=== PATIENT | female | born 1945 | race Caucasian/White ===

== ENCOUNTER 2019-11-01 10:49 | Emergency (ER) | payer MEDICARE, OTHER, SELFPAY ==
[2019-11-01] MEDS: vecuronium 10 mg SDV IVP (10:57)
[2019-11-01 11:00] VITALS: RESP 20
--- NOTE | 2019-11-01 11:02 | XRR_ITS ---
PROCEDURE INFORMATION: Exam: XR Chest, 1 View Exam date and time: 11/01/2019 11:27 AM Age: 73 years old Clinical indication: Device placement; Ett placement (vent status); Patient HX: Post code; Additional info: Covid, ett, og tube TECHNIQUE: Imaging protocol: XR of the chest Views: 1 view. COMPARISON: No relevant prior studies available. FINDINGS: The thorax is partially obscured by overlying EKG leads and patches. Tubes, catheters and devices: Endotracheal and feeding tubes. The endotracheal tube terminates 1.6 cm above the amy wall the feeding tube terminates at the gastroesophageal junction. Lungs: COPD, interstitial disease, and mild airspace disease. Pleural space: Asymmetric apical pleural thickening. Heart/Mediastinum: No cardiomegaly. Bones/joints: Osteopenia, degenerative change, and scoliosis. XR/XR chest 1V portable [id number] IMPRESSION: 1. Endotracheal and feeding tubes. The endotracheal tube terminates 1.6 cm above the amy wall the feeding tube terminates at the gastroesophageal junction. 2. COPD, interstitial disease, and mild airspace disease.
--- NOTE | 2019-11-01 11:03 | ECG_ITS ---
[facility] Test Date: 2019-11-01 Pat Name: Myrtle Molina Department: Room: Gender: Female Reproduction Artist: : [id number] Requested By: Deb Castellanos Order Number: [id number] Ashley MD: Crista Rosario M.D. Measurements Intervals Valentines Rate: 116 P: 68 SD: 192 QRS: 118 QRSD: 126 T: 71 QT: 349 QTc: 485 Interpretive Statements SINUS TACHYCARDIA WITH OCCASIONAL SUPRAVENTRICULAR PREMATURE COMPLEXES POSSIBLE LEFT ATRIAL ENLARGEMENT [-0.1mV P WAVE IN V1/V2] RIGHT BUNDLE BRANCH BLOCK [120+ ms QRS DURATION, UPRIGHT V1, 40+ ms S IN I/aVL/V4/V5/V6] LEFT POSTERIOR FASCICULAR BLOCK [QRS AXIS > 109, INFERIOR Q] No previous ECG available for comparison Electronically Signed On 11-01-2019 19:40:26 CDT by Crista Rosario M.D. [id number]
--- NOTE | 2019-11-01 11:07 | W.ED.GENADLT ---
HPI - General Adult General: Chief complaint: Cardiac Arrest/CPR Stated complaint: CODE BLUE Time Seen by Provider: 11/01/19 11:01 History of Present Illness: HPI narrative: This patient is a 73-year-old female who has been sick for about a week. Per her son she was seen at [place] in the ER on Tuesday for chest pain and shortness of breath and was diagnosed with COVID. She was told that her heart and lungs were good and her oxygen level was good and she was discharged home. Her son and his brother were unable to reach her by phone today and called for a well check. It is unclear from the report whether she was found down or whether she collapsed when someone had arrived to check on her but either way EMS reported that she was pulseless and apneic. She was intubated with an eye gel. She was found to be in V. fib and was defibrillated. She went into [facility] had another round of CPR and then had [facility]. On arrival to the ER she was making some respiratory effort and had a good pulse and blood pressure but minimally responsive. Review of Systems General: Reports: ROS unobtainable due to medical condition Physical Exam Narrative: EXAM NARRATIVE: Intubated with an I gel, some respiratory effort, initially no response to painful stimuli Const: NUTRITIONAL APPEARANCE: thin and underweight Neck/C-Spine: GENERAL: Yes anterior neck swelling (Appears to be related to the eye gel and resolves when it was removed) Chest: COMMONS NORMALS: normal inspection of the chest CHEST: Yes Symmetrical chest wall rise (With bagging) Resp: COMMON NORMALS: clear to auscultation bilaterally (With bagging) AUSCULTATION: clear to auscultation bilaterally (With bagging) Cardio: COMMON NORMALS: regular rhythm and No murmurs present (Cardio) RATE: tachycardic RHYTHM: regular rhythm GI: COMMON NORMALS: Soft to palpation, non-tender and no masses PALPATION: Yes Soft to palpation Extremity: COMMON NORMALS: normal to inspection (I/O in the left tibia) Neuro: VALERIA COMA SCALE: document GCS findings [place] coma scale eye opening: None [place] coma scale verbal response: None Valeria coma scale motor response: Abnormal flexion [place] coma scale total score: 5 Procedures Intubation Time out performed: Yes sedative: Etomidate paralytic: Vecuronium Laryngoscope: fiber optic video scope ET Tube Size: 8 ET Tube Uncuffed: No Tube Secured Depth (cm): 23 Tube Placement Confirmation: visualized tube passing through cords, equal breath sounds bilaterally, no breath sounds over epigastrium and confirmation by capnometry Patient Tolerated Procedure: well Intubation Complications: none Course ED course: I spoke with the patient's son by phone. He lives in [facility] and is on his way here. He requested her to be transferred to [place] if possible. I spoke with Dr. Mccarthy there who accepted the patient. Will be transferred shortly. Vital signs of been good here. She is ventilating well. ABG showed a pH of 7.0. BUN is 49. Glucose is 344. She was started on Decadron, Lovenox, remdesivir. Vital Signs: Vital signs: Vital Signs Temperature 93.6 F L 11/01/19 12:39 Pulse Rate 111 H 11/01/19 12:39 Respiratory Rate 20 H 11/01/19 12:39 Blood Pressure 110/74 11/01/19 12:39 Pulse Oximetry 95 11/01/19 12:39 [facility] - General Adult Lab Data: Labs: Lab Results 11/01/19 11/01/19 11/01/19 Range/Units 10:55 10:55 10:55 WBC 15.1 H (4.0-10.0) 10^3/ uL RBC 3.67 L (4.1-5.3) 10^6/u L Hgb 11.2 L (11.5-15.3) g/dL Hct 35.9 L (37.0-47.0) % MCV 97.8 (81-99) fL MCH 30.5 (28.0-34.0) pg MCHC 31.2 (30.0-36.0) g/dL RDW 13.3 (12.1-15.1) % Plt Count 344 (130-400) 10^3/c mm MPV 10.2 (7.4-10.4) fL Neut % (Auto) 89.0 % Lymph % (Auto) 5.8 % Armstrong % (Auto) 3.4 % Eos % (Auto) 0.0 % Baso % (Auto) 0.2 % Neut # (Auto) 13.42 H (1.8-7.7) 10^3/u L Lymph # (Auto) 0.9 (0.8-4.8) 10^3/u L Armstrong # (Auto) 0.5 (0.2-0.9) 10^3/u L Eos # (Auto) 0.0 (0.0-0.8) 10^3/u L Baso # (Auto) 0.0 (0.0-0.1) 10^3/u L Nucleated RBC % (a uto) 0.1 % Nucleated RBCs # 0.0 /100WBC PT 16.00 H (12.1-14.9) SECO NDS INR 1.24 H (0.8-1.2) D-Dimer 7.93 H (0-0.59) ug/mIFE U Specimen Type Arterial Sample Site Not Reportable ABG pH 7.09 L* (7.35-7.45) ABG pCO2 56.3 H (35-45) mmHg ABG pO2 102.0 H (80.0-100.0) mmH g ABG HCO3 17.2 L (22-26) mmol/L ABG Base Excess -12.5 L (-2.0-2.0) mmol/ L Arnaud Test N/a Hematocrit 35.1 L (37-47) % O2 Delivery Device Vent FiO2 100.0 % Tidal Volume 0.35 PEEP 6.0 cmH20 Cocoa Milling Machine Operator ID Gd Blood Gas Notified Time 1100 Sodium (136-145) mmol/L Potassium (3.5-5.1) mmol/L Chloride (98-107) mmol/L Carbon Dioxide (22-29) mmol/L Anion Gap (5-19) BUN (8-23) mg/dL Creatinine (0.5-0.9) mg/dL GFR Calculation Glucose (65-115) mg/dL Calculated Osmolal ity (285-295) mOsm/k g Lactic Acid (0.5-2.2) mmol/L Calcium (8.5-10.5) mg/dL Total Bilirubin (0.15-1.2) mg/dL AST (0-32) U/L ALT (0-33) U/L Alkaline Phosphata se (35-105) IU/L Troponin T Baselin e (0-10) ng/L Troponin T 120 Min pilot point Delta Troponin T C-Reactive Protein (0.0-4.9) mg/L NT-Pro-B Natriuret Pep (0-125) pg/mL Total Protein (6.6-8.7) g/dL Albumin (3.5-5.2) g/dL Globulin (1.3-4.6) g/dL Procalcitonin (0-0.5) ng/mL 11/01/19 11/01/19 11/01/19 Range/Units 10:55 10:55 10:55 WBC (4.0-10.0) 10^3/ uL RBC (4.1-5.3) 10^6/u L Hgb (11.5-15.3) g/dL Hct (37.0-47.0) % MCV (81-99) fL MCH (28.0-34.0) pg MCHC (30.0-36.0) g/dL RDW (12.1-15.1) % Plt Count (130-400) 10^3/c mm MPV (7.4-10.4) fL Neut % (Auto) % Lymph % (Auto) % Armstrong % (Auto) % Eos % (Auto) % Baso % (Auto) % Neut # (Auto) (1.8-7.7) 10^3/u L Lymph # (Auto) (0.8-4.8) 10^3/u L Armstrong # (Auto) (0.2-0.9) 10^3/u L Eos # (Auto) (0.0-0.8) 10^3/u L Baso # (Auto) (0.0-0.1) 10^3/u L Nucleated RBC % (a uto) % Nucleated RBCs # /100WBC PT (12.1-14.9) SECO NDS INR (0.8-1.2) D-Dimer (0-0.59) ug/mIFE U Specimen Type Sample Site ABG pH (7.35-7.45) ABG pCO2 (35-45) mmHg ABG pO2 (80.0-100.0) mmH g ABG HCO3 (22-26) mmol/L ABG Base Excess (-2.0-2.0) mmol/ L Arnaud Test Hematocrit (37-47) % O2 Delivery Device FiO2 % Tidal Volume PEEP cmH20 Cocoa Milling Machine Operator ID Blood Gas Notified Time Sodium 136 (136-145) mmol/L Potassium 4.7 (3.5-5.1) mmol/L Chloride 99 (98-107) mmol/L Carbon Dioxide 18 L (22-29) mmol/L Anion Gap 23.7 H (5-19) BUN 49 H (8-23) mg/dL Creatinine 1.1 H (0.5-0.9) mg/dL GFR Calculation Not Reportable Glucose 309 H (65-115) mg/dL Calculated Osmolal ity 307 H (285-295) mOsm/k g Lactic Acid 8.6 H* (0.5-2.2) mmol/L Calcium 7.4 L (8.5-10.5) mg/dL Total Bilirubin 0.6 (0.15-1.2) mg/dL AST 87 H (0-32) U/L ALT 51 H (0-33) U/L Alkaline Phosphata se 65 (35-105) IU/L Troponin T Baselin e 112 H* (0-10) ng/L Troponin T 120 Min pilot point Delta Troponin T C-Reactive Protein 147.8 H (0.0-4.9) mg/L NT-Pro-B Natriuret Pep 41734 H (0-125) pg/mL Total Protein 5.2 L (6.6-8.7) g/dL Albumin 3.0 L (3.5-5.2) g/dL Globulin 2.2 (1.3-4.6) g/dL Procalcitonin 31.01 H (0-0.5) ng/mL 11/01/19 Range/Units 12:52 WBC (4.0-10.0) 10^3/ uL RBC (4.1-5.3) 10^6/u L Hgb (11.5-15.3) g/dL Hct (37.0-47.0) % MCV (81-99) fL MCH (28.0-34.0) pg MCHC (30.0-36.0) g/dL RDW (12.1-15.1) % Plt Count (130-400) 10^3/c mm MPV (7.4-10.4) fL Neut % (Auto) % Lymph % (Auto) % Armstrong % (Auto) % Eos % (Auto) % Baso % (Auto) % Neut # (Auto) (1.8-7.7) 10^3/u L Lymph # (Auto) (0.8-4.8) 10^3/u L Armstrong # (Auto) (0.2-0.9) 10^3/u L Eos # (Auto) (0.0-0.8) 10^3/u L Baso # (Auto) (0.0-0.1) 10^3/u L Nucleated RBC % (a uto) % Nucleated RBCs # /100WBC PT (12.1-14.9) SECO NDS INR (0.8-1.2) D-Dimer (0-0.59) ug/mIFE U Specimen Type Sample Site ABG pH (7.35-7.45) ABG pCO2 (35-45) mmHg ABG pO2 (80.0-100.0) mmH g ABG HCO3 (22-26) mmol/L ABG Base Excess (-2.0-2.0) mmol/ L Arnaud Test Hematocrit (37-47) % O2 Delivery Device FiO2 % Tidal Volume PEEP cmH20 Cocoa Milling Machine Operator ID Blood Gas Notified Time Sodium (136-145) mmol/L Potassium (3.5-5.1) mmol/L Chloride (98-107) mmol/L Carbon Dioxide (22-29) mmol/L Anion Gap (5-19) BUN (8-23) mg/dL Creatinine (0.5-0.9) mg/dL GFR Calculation Glucose (65-115) mg/dL Calculated Osmolal ity (285-295) mOsm/k g Lactic Acid (0.5-2.2) mmol/L Calcium (8.5-10.5) mg/dL Total Bilirubin (0.15-1.2) mg/dL AST (0-32) U/L ALT (0-33) U/L Alkaline Phosphata se (35-105) IU/L Troponin T Baselin e (0-10) ng/L Troponin T 120 Min pilot point Cancelled Delta Troponin T Cancelled C-Reactive Protein (0.0-4.9) mg/L NT-Pro-B Natriuret Pep (0-125) pg/mL Total Protein (6.6-8.7) g/dL Albumin (3.5-5.2) g/dL Globulin (1.3-4.6) g/dL Procalcitonin (0-0.5) ng/mL Discharge Plan Discharge Patient Disposition: Xfer Short-Term Hosp Clinical Impression: Cardiac arrest, COVID-19, Acidosis Hypothermia Qualifiers: Encounter type: initial encounter Qualified Code(s): T68.XXXA - Hypothermia, initial encounter Condition: Stable Referrals: Edwin Alvarez MD [Primary Care Provider] - Discharge Date/Time: 11/01/19 13:00 Coding Level of Care Code ED Kindergarten Instructional Assistant for Chg Fwd Exam Comprehensive
[2019-11-01 11:11] LABS: ABG PCO2 56.3 mmHg (35-45); Arterial Blood Gas Hematocrit 35.1 % (37-47); Base Excess ABG -12.5 mmol/L (-2.0-2.0); Basophils % 0.2 %; Blood Gas Operator Identificat GD; Blood Gas Sample Type Arterial; Blood Gas Tidal Volume 0.35; HCO3 ABG 17.2 mmol/L (22-26); Hematocrit 35.9 % (37.0-47.0); Hemoglobin 11.2 g/dL (11.5-15.3); Lymphocytes # 0.9 10^3/uL (0.8-4.8); Lymphocytes % 5.8 %; Mean Corpuscular HGB Conc 31.2 g/dL (30.0-36.0); Mean Corpuscular Hemoglobin 30.5 pg (28.0-34.0); Mean Corpuscular Volume 97.8 fL (81-99); Mean Platelet Volume 10.2 fL (7.4-10.4); Monocytes # 0.5 10^3/uL (0.2-0.9); Monocytes % 3.4 %; Neutrophils # 13.42 10^3/uL (1.8-7.7); Nucleated Red Blood Cells % 0.1 %; Oxygen Device VENT; Platelet Count 344 10^3/cmm (130-400); Red Blood Count 3.67 10^6/uL (4.1-5.3); Red Cell Distribution Width 13.3 % (12.1-15.1); White Blood Count 15.1 10^3/uL (4.0-10.0)
[2019-11-01 11:12] LABS: ABG PH Result 7.09 (7.35-7.45)
[2019-11-01] MEDS: sodium chloride 0.9% 1,000 ML 75 ML IV (11:20)
[2019-11-01 11:21] LABS: INR 1.24 (0.8-1.2)
[2019-11-01 11:28] VITALS: BP 130/97; PULSE 120; RESP 15; TEMP 33.6; O2SAT 99; BMI 15.0
[2019-11-01 11:31] LABS: D Dimer 7.93 ug/mIFEU (0-0.59)
[2019-11-01 11:34] LABS: Troponin(5th) Baseline 112 ng/L (0-10)
[2019-11-01 11:35] LABS: Lactic Sepsis W/Reflex 8.6 mmol/L (0.5-2.2)
[2019-11-01 11:36] LABS: Procalcitonin 31.01 ng/mL (0-0.5)
[2019-11-01] MEDS: dexamethasone 10 mg/mL INJ IVP (11:38)
[2019-11-01] MEDS: enoxaparin 40 mg/0.4 mL Syringe SUBCUT (11:38)
[2019-11-01 11:49] LABS: Alanine Aminotransferase 51 U/L (0-33); Alkaline Phosphatase 65 IU/L (35-105); Anion Gap 23.7 (5-19); Aspartate Amino Transferase 87 U/L (0-32); Blood Urea Nitrogen 49 mg/dL (8-23); C Reactive Protein 147.8 mg/L (0.0-4.9); Calcium 7.4 mg/dL (8.5-10.5); Carbon Dioxide 18 mmol/L (22-29); Chloride 99 mmol/L (98-107); Globulin 2.2 g/dL (1.3-4.6); Glucose 309 mg/dL (65-115); Osmolality Calculated 307 mOsm/kg (285-295); Potassium 4.7 mmol/L (3.5-5.1); Sodium 136 mmol/L (136-145); Total Bilirubin 0.6 mg/dL (0.15-1.2); Total Protein 5.2 g/dL (6.6-8.7)
[2019-11-01 11:51] VITALS: TEMP 34
--- NOTE | 2019-11-01 11:55 | PC.NURSE ---
Pt arrived to ED at 1049, triaged at 1049, see triage note for EMS report. Pt was placed on monitor and Zoll upon arrival, 18G IV established to right forearm, blood drawn at this time. Pt had pulse upon arrival. I-gel removed by Dr So at 1057, 15mg Etomidate given, 10mg Vecuronium given via right forearm IV. Pt intubated with glidescope by Dr So at 1058, 8.0 tube, 23 at the lip. Pt attached to ventilator, warm blankets placed on pt as Walt hugger in ICU. Dr So placed 16Fr OG tube, ausculated and clamped. 1103- 16G IV placed to right upper arm, ABG obtained by RT. 1104- 16Fr gabriel catheter placed, urine sample obtained, labeled and sent to lab. 1108- IO from left tibia was removed intact, discarded in sharps. More blood obtained from left forearm by nurse. 1110 EKG obtained, 1120- XR obtained. Pt was placed on Walt hugger at 1124. Pt care nurse updated on pt, care turned over at this time.
[2019-11-01 12:39] VITALS: BP 110/74; PULSE 111; RESP 20; TEMP 34.2; O2SAT 95
[2019-11-01] MEDS: piperacillin-tazobactam 3.375 GM in sodium chloride 0.9% (plus) 50 ML IV (12:40)
[2019-11-01] MEDS: vancomycin 1,000 MG in sodium chloride 0.9% 250 ML 250 MG IV (12:45)
[2019-11-01 12:49] LABS: NT Pro B Type Natriuretic Pept 54303 pg/mL (0-125)
[2019-11-01 12:55] LABS: Reflex Lactate Order REFLEX LACTIC ORDERD
[2019-11-01 13:52] LABS: Blood Gas CCRB Time 1100
== END 2019-11-01 13:00 | disposition short-term general hospital (02) ==
PROVIDERS: Emergency Provider Emergency Medicine; PCP Obstetrics & Gynecology
DX: I46.9 Cardiac arrest, cause unspecified (principal); U07.1 COVID-19; E87.2 Acidosis; T68.XXXA Hypothermia, initial encounter; X31.XXXA Exposure to excessive natural cold, initial encounter
CPT/HCPCS: 12345; 31500; 36600; 51702; 71045; 80053; 82803; 83605; 83880; 84145; 84484; 85025; 85378; 85610; 86140; 87040; 87070; 87205; 93005; 94002; 94799; 96365; 96366; 96367; 96368; 96372; 96375; 99284; 99291; J1100; J1650; J2543; J3370; J3490; J7030; J7050